=== PATIENT | male | born 1965 | race Caucasian/White ===

== ENCOUNTER → 2021-06-04 13:03 | Outpatient (BNVA) | payer MEDICAID, SELFPAY | PROVIDERS: Visit Provider Orthopaedic Surgery | DX: G56.03 Carpal tunnel syndrome, bilateral upper limbs (principal) | CPT/HCPCS: 99202 ==

== ENCOUNTER 2021-06-12 10:33 | Day surgery (SDC) | payer MEDICAID, SELFPAY ==
[2021-06-12 11:07] VITALS: BP 129/79; PULSE 65; RESP 16; TEMP 36.3; O2SAT 97; BMI 37.5
--- NOTE | 2021-06-12 12:05 | MHC.SHP ---
Pre-Procedural Eval Section A Date of Service: 06/12/21 The patient is an INPATIENT: No Changes since office visit: No Cold of Flu in the past 2 weeks, No New Medical Problems, No Changes in Medication and No Patient answered all questions The History & Physical has been completed within 30 days and I have reviewed it.: Yes Section B Chief Complaint: carpal tunnel Allergies: Allergies Allergy/AdvReac Type Severity Reaction Status Date / Time No Known Allergies Allergy Verified 06/12/21 11:05 Plan I have reviewed the history and physical and performed a pertinent physical examination on my patient. No changes have occurred unless specified.
--- NOTE | 2021-06-12 12:06 | W.PM.OPN ---
Operative Note Operative Note Date of Service: 06/12/21 Narrative: Preop diagnosis: 1. Left Carpal tunnel syndrome Postop diagnosis: same Procedure: 1. Left Carpal tunnel release Surgeon: Sherri Patel MD Anesthesia: local block using 1% lidocaine with epinephrine Findings: Thickened transverse carpal ligament. EBL: Less than 5 mL Specimens: None Complications: None Disposition: Brought to recovery room in stable condition Plan: Follow-up for 7-10 days for wound check and suture removal Indications: The patient is 55 years old, with left carpal tunnel syndrome that has been unresponsive to nonoperative management. The risks and benefits of operative treatment including but not limited to risk of damage to blood vessels, nerves, tendons, infection, persistent pain, persistent symptoms, or possible need for additional surgery were discussed with the patient and the patient wishes to proceed with surgery. Procedure: Once consent was obtained a local block was performed using a combination of 1% lidocaine with epinephrine. The patient was then brought back to the operating suite and placed on the operative table in supine position. A tourniquet was applied to the proximal aspect of the left upper extremity and the limb was prepped and draped in a standard surgical fashion. Once assured that we had a good block, a 1.5 cm longitudinal incision was made centered over the carpal tunnel. The incision was made through the skin to the subcutaneous tissues using a #15 blade. Dissection was made down to the level of the transverse carpal ligament with care being taken to protect the palmar cutaneous nerve. Once the transverse carpal ligament was clearly visualized, a longitudinal incision was made in the transverse carpal ligament 1st using a #15 blade, then using tenotomy scissors under direct visualization. Care was taken to look for and protect the motor branch of the median nerve when seen in this area. Once satisfied with our carpal tunnel release the wound was copiously irrigated with normal saline and hemostasis was obtained with a brief period of local pressure. The skin edges were reapproximated with some 5.0 nylon suture material and a sterile dressing was applied. The patient appears to have tolerated the procedure well and with no complications. All digits were well vascularized at the conclusion of the case.
[2021-06-12 12:43] VITALS: BP 127/78; PULSE 60; RESP 16; TEMP 36.3; O2SAT 97
== END 2021-06-12 13:00 | disposition home or self-care (01) ==
PROVIDERS: Visit Provider Orthopaedic Surgery
PROC: (CPT 64721; principal; 2021-06-12 11:50)
DX: G56.02 Carpal tunnel syndrome, left upper limb (principal)
CPT/HCPCS: 64721

== ENCOUNTER → 2021-06-25 12:03 | Outpatient (BNVA) | payer MEDICAID, SELFPAY | PROVIDERS: Visit Provider Orthopaedic Surgery | DX: Z48.89 Encounter for other specified surgical aftercare (principal); Z87.39 Personal history of other diseases of the musculoskeletal system and connective tissue | CPT/HCPCS: 99212 ==

== ENCOUNTER 2021-07-10 10:39 | Day surgery (SDC) | payer MEDICAID, SELFPAY ==
[2021-07-10 11:42] VITALS: BMI 37.5
[2021-07-10 11:58] VITALS: BP 94/77; PULSE 63; RESP 16; TEMP 36.7; O2SAT 95
--- NOTE | 2021-07-10 13:13 | MHC.SHP ---
Pre-Procedural Eval Section A Date of Service: 07/10/21 The patient is an INPATIENT: No Changes since office visit: No Cold of Flu in the past 2 weeks, No New Medical Problems, No Changes in Medication and No Patient answered all questions The History & Physical has been completed within 30 days and I have reviewed it.: Yes Section B Chief Complaint: carpal tunnel syndrome Allergies: Allergies Allergy/AdvReac Type Severity Reaction Status Date / Time No Known Allergies Allergy Verified 06/25/21 12:36 Plan I have reviewed the history and physical and performed a pertinent physical examination on my patient. No changes have occurred unless specified.
--- NOTE | 2021-07-10 13:14 | W.PM.OPN ---
Operative Note Operative Note Date of Service: 07/10/21 Narrative: Preop diagnosis: 1. Right Carpal tunnel syndrome Postop diagnosis: same Procedure: 1. Right Carpal tunnel release Surgeon: Sherri Patel MD Anesthesia: local block using 1% lidocaine with epinephrine Findings: Thickened transverse carpal ligament. EBL: Less than 5 mL Specimens: None Complications: None Disposition: Brought to recovery room in stable condition Plan: Follow-up for 7-10 days for wound check and suture removal Indications: The patient is 55 years old, with right carpal tunnel syndrome that has been unresponsive to nonoperative management. The risks and benefits of operative treatment including but not limited to risk of damage to blood vessels, nerves, tendons, infection, persistent pain, persistent symptoms, or possible need for additional surgery were discussed with the patient and the patient wishes to proceed with surgery. Procedure: Once consent was obtained a local block was performed using a combination of 1% lidocaine with epinephrine. The patient was then brought back to the operating suite and placed on the operative table in supine position. A tourniquet was applied to the proximal aspect of the right upper extremity and the limb was prepped and draped in a standard surgical fashion. Once assured that we had a good block, a 1.5 cm longitudinal incision was made centered over the carpal tunnel. The incision was made through the skin to the subcutaneous tissues using a #15 blade. Dissection was made down to the level of the transverse carpal ligament with care being taken to protect the palmar cutaneous nerve. Once the transverse carpal ligament was clearly visualized, a longitudinal incision was made in the transverse carpal ligament 1st using a #15 blade, then using tenotomy scissors under direct visualization. Care was taken to look for and protect the motor branch of the median nerve when seen in this area. Once satisfied with our carpal tunnel release the wound was copiously irrigated with normal saline and hemostasis was obtained with a brief period of local pressure. The skin edges were reapproximated with some 5.0 nylon suture material and a sterile dressing was applied. The patient appears to have tolerated the procedure well and with no complications. All digits were well vascularized at the conclusion of the case.
[2021-07-10 14:10] VITALS: BP 144/93; PULSE 60; RESP 18; TEMP 36.7; O2SAT 98
== END 2021-07-10 14:38 | disposition home or self-care (01) ==
PROVIDERS: Visit Provider Orthopaedic Surgery
PROC: (CPT 64721; principal; 2021-07-10 13:10)
DX: G56.01 Carpal tunnel syndrome, right upper limb (principal)
CPT/HCPCS: 64721

== ENCOUNTER → 2021-07-25 12:27 | Outpatient (BNVA) | payer MEDICAID, SELFPAY | PROVIDERS: Visit Provider Orthopaedic Surgery | DX: G56.03 Carpal tunnel syndrome, bilateral upper limbs (principal); I10 Essential (primary) hypertension | CPT/HCPCS: 99212 ==

== ENCOUNTER 2021-08-10 11:55 | Outpatient (REF) | payer MEDICAID, SELFPAY ==
--- NOTE | ~2021-08-10 | XR_ITS ---
EXAMINATION: XR KNEE, LEFT XR KNEE, RIGHT CLINICAL INFORMATION: Bilateral knee pain COMPARISON: None TECHNIQUE: 4 views of each knee. This includes AP upright view. FINDINGS: Left knee: No fracture or subluxation. Compartmental joint spaces are maintained. No joint effusion. The soft tissues are unremarkable. Right knee: No fracture or subluxation. Compartmental joint spaces are maintained. No joint effusion. The soft tissues are unremarkable. XR/XR knee LT 4V IMPRESSION: Normal appearance of both knees.
--- NOTE | ~2021-08-10 | XR_ITS ---
EXAMINATION: XR KNEE, LEFT XR KNEE, RIGHT CLINICAL INFORMATION: Bilateral knee pain COMPARISON: None TECHNIQUE: 4 views of each knee. This includes AP upright view. FINDINGS: Left knee: No fracture or subluxation. Compartmental joint spaces are maintained. No joint effusion. The soft tissues are unremarkable. Right knee: No fracture or subluxation. Compartmental joint spaces are maintained. No joint effusion. The soft tissues are unremarkable. XR/XR knee RT 4V IMPRESSION: Normal appearance of both knees.
== END 2021-08-10 11:56 | disposition home or self-care (01) ==
LOC: HO.XRAY 11:55
PROVIDERS: Absent Provider Student in an Organized Health Care Education/Training Program; PCP Student in an Organized Health Care Education/Training Program; Visit Provider Family Medicine
DX: M25.562 Pain in left knee (principal); M25.561 Pain in right knee
CPT/HCPCS: 73564

== ENCOUNTER 2021-09-17 09:40 | Outpatient (REF) | payer MEDICAID, SELFPAY ==
[2021-09-17 10:42] LABS: COVID-19 Test Negative (Negative)
== END 2021-09-17 09:41 | disposition home or self-care (01) ==
LOC: HO.LAB 09:40
PROVIDERS: Visit Provider Internal Medicine
DX: Z20.822 Contact with and (suspected) exposure to COVID-19 (principal)
CPT/HCPCS: 36415; 87635; C9803

== ENCOUNTER 2023-10-14 13:41 | Outpatient (REF) | payer MEDICAID, SELFPAY ==
[2023-10-14 15:31] LABS: Anion Gap 12 (12-20); Blood Urea Nitrogen 12 mg/dL (9-16); Calcium 10.8 mg/dL (8.4-10.2); Carbon Dioxide 21 mmol/L (22-29); Chloride 109 mmol/L (96-108); Estimated Glomerular Filt Rate > 60; Glucose Random 99 mg/dL (60-115); Potassium 4.1 mmol/L (3.3-5.1); Sodium 138 mmol/L (135-145)
== END 2023-10-14 13:42 | disposition home or self-care (01) ==
LOC: HO.CHCLDS 13:41
PROVIDERS: Visit Provider Internal Medicine
DX: R22.1 Localized swelling, mass and lump, neck (principal)
CPT/HCPCS: 36415; 80048

== ENCOUNTER 2023-10-31 10:31 | Outpatient (REF) | payer MEDICAID, SELFPAY ==
[2023-10-31 15:14] LABS: Alanine Aminotransferase 43 U/L (0-40); Alkaline Phosphatase 86 U/L (39-117); Anion Gap 10 (12-20); Aspartate Amino Transferase 45 U/L (5-37); Bilirubin Direct 0.2 mg/dL (0.0-0.5); Bilirubin Total 0.5 mg/dL (0.0-1.0); Blood Urea Nitrogen 9 mg/dL (9-16); Calcium 11.2 mg/dL (8.4-10.2); Carbon Dioxide 23 mmol/L (22-29); Chloride 108 mmol/L (96-108); Cholesterol 198 mg/dL (<200); Estimated Glomerular Filt Rate > 60; Glucose Random 94 mg/dL (60-115); HDL Cholesterol 32 mg/dL (>40); LDL Cholesterol Calculated 111 mg/dL (<100); Potassium 4.3 mmol/L (3.3-5.1); Sodium 137 mmol/L (135-145); Total Protein 7.2 g/dL (6.5-8.0); Triglycerides 278 mg/dL (<150)
[2023-11-04 15:43] LABS: HIV RNA PCR Qn Copies Not Detected Copies/mL; HIV RNA PCR Qn Log Copies Not Detected Log cps/mL
== END 2023-10-31 10:32 | disposition home or self-care (01) ==
LOC: HO.CHCLDS 10:31
PROVIDERS: Visit Provider Student in an Organized Health Care Education/Training Program
DX: Z00.00 Encounter for general adult medical examination without abnormal findings (principal); I10 Essential (primary) hypertension
CPT/HCPCS: 36415; 80048; 80061; 80076; 86803; 87536; 87900

== ENCOUNTER 2023-11-03 14:45 | Outpatient (AMB) | payer MEDICAID, SELFPAY ==
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
[2023-11-03 15:20] VITALS: BP 145/81; PULSE 63; BMI 40.0
== END 2023-11-03 16:10 | disposition home or self-care (01) ==
PROVIDERS: PCP Student in an Organized Health Care Education/Training Program; Referring Provider Student in an Organized Health Care Education/Training Program; Visit Provider Surgery
DX: R22.1 Localized swelling, mass and lump, neck (principal)
CPT/HCPCS: 99204

== ENCOUNTER → 2023-11-03 14:45 | Outpatient (BNVA) | payer MEDICAID, SELFPAY | PROVIDERS: PCP Student in an Organized Health Care Education/Training Program; Visit Provider Surgery | DX: R22.1 Localized swelling, mass and lump, neck (principal) | CPT/HCPCS: 99202 ==

== ENCOUNTER 2023-11-06 14:50 | Outpatient (REF) | payer MEDICAID, SELFPAY ==
[2023-11-06 16:38] LABS: Partial Thromboplastin Time 36.4 SEC (26.0-36.4)
[2023-11-06 16:45] LABS: Anion Gap 9 (12-20); Blood Urea Nitrogen 14 mg/dL (9-16); Carbon Dioxide 24 mmol/L (22-29); Chloride 109 mmol/L (96-108); Estimated Glomerular Filt Rate > 60; Glucose Random 91 mg/dL (60-115); Potassium 4.5 mmol/L (3.3-5.1); Sodium 137 mmol/L (135-145)
== END 2023-11-06 14:51 | disposition home or self-care (01) ==
LOC: HO.CHCLDS 14:50
PROVIDERS: Visit Provider Student in an Organized Health Care Education/Training Program
DX: E83.52 Hypercalcemia (principal)
CPT/HCPCS: 36415; 80048; 83970; 85730

== ENCOUNTER 2025-06-07 10:19 | Outpatient (REF) | payer MEDICAID, SELFPAY ==
--- OUTSIDE RECORDS SUMMARY | 2025-06-07 11:02 | XMS_ITS | Encounter Summary ---
Author Organization [employer] Address [address] [place] [address] [address] [place] [address] Care Team Providers Care Mold Sheet Cleaner Name Role Phone Michaela Watt MD Primary Care Provider [phone] Encounter Details Date Type Department Care Team (Late st Contact Info) Description 02/03/2024 Orders Only [facility] [address] [place] [address] ProviderMirela MD Social History Tobacco Use Types Packs/Day Years Used Date Smoking Tobacco: Former Cigarettes Passive Smoke Exposure: Current Smokeless Tobacco: Never Alcohol Use Standard Drinks/Week Comments Defer 0 (1 standard drink = 0.6 oz pur e alcohol) Depression Answer Date Recorded Patient Health Questionnaire-9 Score 0 10/01/2023 Patient Health Questionnaire-9 Score 0 10/01/2023 Last PHQ-9: Questionnaire Data Not on file 1 12/02/2022 Housing Stability Answer Date Recorded What is your housing situation today? I have gamalielalexandr browne 08/01/[address] you li ve. Do you have problems with any of the following? None of the above 08/01/2023 Food Insecurity Answer Date Recorded Within the past 12 months, y ou worried that your food would run out before you got money to buy more: Never True 08/01/2023 Within the past 12 months,th e food you bought just didn't last and you didn't have enough money to get more: Never True Transportation Answer Date Recorded In the past 12 months, has l ack of transportation kept you from medical appts, meetings, work or from getting things needed for daily living? No 08/01/2023 Utilities Answer Date Recorded In the past 12 months, has t he electric, gas, oil or water [employer] threatened to shut off services in your home? No 08/01/2023 Depression Answer Date Recorded Patient Health Questionnaire-2 Score 0 10/01/2023 Sex and Gender Information Value Date Recorded Sex Assigned at Male 08/12/2022 10:15 AM EDT Legal Sex Male 10:15 AM EDT Gender Identity Male 08/12/2022 10:15 AM EDT Sexual Orientation Lesbian or Delcid 08/12/2022 10 :15 AM EDT documented as of this encounter Plan of Treatment Upcoming Encounters Date Type Department Care Team (Late st Contact Info) Description 06/23/2025 8:45 AM EDT Office Visit [facility] [address] [place], [place] [phone] Michaela Watt MD [address] [place], [place] [phone] 09/26/2025 11:00 AM EST Office Visit [facility] [address] [place], [place] [phone] Ann Bonilla, OD [address] [place] [address] documented as of this encounter Procedures Procedure Name Priority Date/Time Associated Diagnosis Comments CT NECK AND CHEST WITH INTRAVENOUS CONTRAST Routine 02/02/2024 10:33 AM EDT documented in this encounter Results * CT NECK AND CHEST WITH INTRAVENOUS CONTRAST (02/02/2024 10:33 AM EDT) Anatomical Region Laterality Modality Body, Chest Computed Tomogra phy Historical Provider MD [facility] CT PROCEDURES Final R esult documented in this encounter Visit Diagnoses Not on filedocumented in this encounter Additional Health Concerns Assessment Noted Time PHQ-9 Depression Total Score: 0 10/01/20 23 9:56 AM EST documented as of this encounter Care Teams Mold Sheet Cleaner Relationship Specialty Start Date End Date Michaela Watt MD [address] [place] [address] PCP - General Family Medicine 03/28/16 documented as of this encounter
--- OUTSIDE RECORDS SUMMARY | 2025-06-07 11:02 | XMS_ITS | Encounter Summary ---
Author Organization [employer] Address [address] [place] [address] [address] [place] [address] Care Team Providers Care Quality Assurance Practice Manager Name Role Phone Michaela Watt MD Primary Care Provider [phone] Reason for Visit * Reason Onset Date Comments Referral 11/04/2023 Encounter Details Date Type Department Care Team ([facility] st Contact Info) Description 11/04/2023 Telephone [facility] [address] [place] [address] Michaela Watt MD [address] [place] [address] Referral Social History Tobacco Use Types Packs/Day Years [...] is your housing situation today? I have gamaliel browne 08/01/[address] you [...] t he electric, gas, oil or water company threatened to shut off services in your home? No 08/01/2023 Depression Answer Date Recorded Patient Health Questionnaire-2 Score 0 10/01/2023 Sex and Gender Information Value Date Recorded Sex Assigned at Male 08/12/2022 10:15 AM EDT Legal Sex Male 10:15 AM EDT Gender Identity Male 08/12/2022 10:15 AM EDT Sexual Orientation Lesbian or Delcid 08/12/2022 10 :15 AM EDT documented as of this encounter Miscellaneous Notes * Telephone Encounter - Luisa Duarte RN - 11/11/2023 3:29 PM EST TC placed to patient regarding message below from Dr. Watt. Patient reports he is aware of this result and was already called by Endo. He has an appointment with them on 11/21/23. No other questions or concerns at this time. Routing to PCP so she is aware. ----- Message from Michaela Watt MD sent at 11/11/2023 10:24 AM EST ----- STAT referral done to Endo for elevated Parathyroid hormone * Telephone Encounter - Betty Bowen RN - 11/05/2023 1:27 PM EST Please review note from Gen surgery in pt chart from 11/03/23. Dr Kilgore is recommending a referral to a head and neck surgeon. Please advise. * Telephone Encounter - Meghan Matthew - 11/04/2023 10:28 AM EST Tc from pt calling to inform referral that was sent on 10/31/23 to [facility]. Provider inform pt would need another referral somewhere else . Please call pt to clarify . documented in this encounter Plan of Treatment Upcoming Encounters Date Type Department Care Team (Late st Contact Info) Description 06/23/2025 8:45 AM EDT Office Visit [facility] [address] [place], [place] [phone] Michaela Watt MD [address] [place], [place] [phone] 09/26/2025 11:00 AM EST Office Visit [facility] [address] [place] [address] Ann Bonilla, OD [address] [place] [address] documented as of this encounter Visit Diagnoses Not on filedocumented in this encounter Additional Health Concerns Assessment Noted Time PHQ-9 Depression Total Score: 0 10/01/20 9:56 AM EST documented as of this encounter Care Teams Quality Assurance Practice Manager Relationship Specialty Start Date End Date Michaela Watt MD [address] [place] [address] PCP - General Family Medicine 03/28/16 documented as of this encounter
--- OUTSIDE RECORDS SUMMARY | 2025-06-07 11:02 | XMS_ITS | Encounter Summary ---
Author Organization [employer] Address [address] [place] [address] Care Team Providers Care Clinical Laboratory Director Name Role Phone Michaela Watt MD Primary Care Provider Encounter Details Date Type Department Care Team (Late st Contact Info) Description 10/15/2024 Orders Only [facility] [address] [place] [address] ProviderMirela MD Social History Tobacco Use Types [...] t he electric, gas, oil or water [employer] threatened to shut off services in your [...] Description 06/23/2025 8:45 AM EDT Office Visit [facility] [address] [place], [place] [phone] Michaela Watt MD [address] [place], [place] [phone] 09/26/2025 11:00 AM EST Office Visit [facility] [address] [place], [place] [phone] Chad, Ann, OD [address] [place] [address] documented as of this encounter Procedures Procedure Name Priority Date/Time Associated Diagnosis Comments CT SOFT TISSUE NECK W CONTRAST Routine 1965 1:43 PM EST documented in this encounter Results * CT SOFT TISSUE NECK W CONTRAST (1965 1:43 PM EST) Anatomical Region Laterality Modality Computed Tomogra phy us Historical Provider MD [facility] CT PROCEDURES Final R esult documented in this encounter Visit Diagnoses Not on filedocumented in this encounter Additional Health Concerns Assessment Noted Time PHQ-9 Depression Total Score: 0 10/01/20 23 9:56 AM EST documented as of this encounter Care Teams Clinical Laboratory Director Relationship Specialty Start Date End Date Michaela Watt MD [address] [place] [address] PCP - General Family Medicine 03/28/16 documented as of this encounter
--- OUTSIDE RECORDS SUMMARY | 2025-06-07 11:02 | XMS_ITS | Clinical Summary ---
Author Organization [facility] Address [address] [place] [address] Care Team Providers Care Scientific Diver Name Role Phone Michaela Watt Primary Care Provider Allergies No known active allergies Medications zolpidem (AMBIEN) 5 mg tablet TOME LUIS TABLETA TODOS LOS D AL ACOSTARSE 4 Active magnesium oxide 400 mg magnesium capsule SMARTSI Capsule(s) By Mouth Every Morning 3 Active ARIPiprazole (ABILIFY) 10 mg tablet TOME LUIS TABLETA TODOS LOS D AL ACOSTARSE 4 Active hydrOXYzine (VISTARIL) 25 mg capsule SMARTSI Capsule(s) By Mouth 3 Times Daily PRN 4 Active lisinopriL (PRINIVIL,ZESTR IL) 20 mg tablet TOME LUIS TABLETA TODOS LOS D EN LA MA JOSÉ MIGUEL Active FLUoxetine (PROzac) 10 mg capsule SMARTSI Tablet(s) By Mouth Daily Active simvastatin (ZOCOR) 10 mg tablet TOME LUIS TABLETA TODOS LOS D EN LA NOCHE 3 Active riboflavin, vitamin B2, 400 mg tablet SMARTSI Tablet(s) By Mouth Every Morning 3 Active busPIRone (BUSPAR) 15 mg tablet Take 7.5 mg by mouth 2 times a day. Active ibuprofen (MOTRIN) 200 mg tablet Take 65 mg by mouth every 6 hours as needed for pain. Active Social History Tobacco Use Types Packs/Day Years Used Date Smoking Tobacco: Former Cigarettes Smokeless Tobacco: Never Alcohol Use Standard Drinks/Week Comments Not Currently 0 (1 standard drink = 0.6 oz pur e alcohol) Sex and Gender Information Value Date Recorded Sex Assigned at Male 11/24/2023 1:48 PM EST Legal Sex Male 1:45 PM EST Gender Identity Not on file Sexual Orientation Not on file Last Filed Vital Signs Vital Sign Reading Time Taken Comments Blood Pressure 131/80 12/31/2023 1:06 PM EDT Pulse 69 12/31/2023 1:06 PM EDT Temperature - - Respiratory Rate - - Oxygen Saturation - - Inhaled Oxygen Concentration - - Weight 101.2 kg (223 lb) 12/31/2023 1:06 PM EDT Height - - Body Mass Index - - Plan of Treatment Health Maintenance Due Date Last Done Comments Cologuard 1965 Colon Cancer Screening 1965 Colonoscopy 1965 FOBT / Fit Test 1965 Hepatitis C Screening 1965 Sigmoidoscopy 1965 Hepatitis B Vaccines (1 of 3 - 19+ 3-dose series) 1984 CT Lung Cancer Screening (Baseline) 2015 Pneumococcal Vaccine: 50+ Ye ars (1 of 1 - PCV) 2015 Zoster Vaccines (1 of 2) 2015 COVID-19 Vaccine (2 - season) 06/13/202410/2020 Alcohol/Substance Use Screening 10/13/2024 Depression Screening and Follow-Up 10/13/2024 Social Drivers of Health Sara ual Screening 10/13/2024 Influenza Vaccine (#1) 2025 , 07/25/2016, 06/25/2011 DTaP,Tdap,and Td Vaccines (3 - Td or Tdap) 10/01/2033 10/01/2023, 12/28/2012, 06/26/2007 RSV Vaccine (60+ years old a nd patients) (1 - 1-dose 75+ series) 2040 HIV Screening Completed 10/31/2023 Insurance [facility] [place] [id number] Care Teams Scientific Diver Relationship Specialty Start Date End Date Michaela Watt [address] [place] [phone] PCP - General Family Medicine 11/24/23
--- OUTSIDE RECORDS SUMMARY | 2025-06-07 11:02 | XMS_ITS | Encounter Summary ---
Author Organization [facility] Address [address] [place] [address] Care Team Providers Care Industrial Production Manager Name Role Phone Michaela Watt Primary Care Provider [phone] Reason for Visit * Reason Onset Date Comments Actionable Finding 04/22/2024 Encounter Details Date Type Department Care Team (Late st Contact Info) Description 04/22/2024 Telephone [facility] - Actionable Findings [address] [facility] [address] [place], [place] [phone] Trent Tyler RN Actionable Finding Social History Tobacco Use Types Packs/Day Years [...] on file Sexual Orientation Not on file documented as of this encounter Miscellaneous Notes * Telephone Encounter - Trent Tyler RN - 04/22/2024 3:05 PM EDT The Actionable Findings Team performed a chart review of radiology studies below. There may not have been a telephone call or patient contact with this encounter. Actionable finding review of CT Date of scan: 01/28/24 Location of scan: [facility] Status of incidental finding: Provider aware (acknowledged) Trent Abreu RN at [phone] documented in this encounter Plan of Treatment Not on file documented as of this encounter Visit Diagnoses Not on filedocumented in this encounter Care Teams Industrial Production Manager Relationship Specialty Start Date End Date Michaela Watt [address] [place] [id number] PCP - General Family Medicine 11/24/23 documented as of this encounter
--- OUTSIDE RECORDS SUMMARY | 2025-06-07 11:02 | XMS_ITS | Encounter Summary ---
Author Organization [employer] Address [address] [place] [address] [address] [place] [address] Care Team Providers Care Incoming Freight Clerk Name Role Phone Michaela Watt MD Primary Care Provider [phone] Reason for Visit * Reason Onset Date Comments Medication Question 10/08/2022 Encounter Details Date Type Department Care Team (Late Contact Info) Description 10/08/2022 Telephone [facility] [address] [place] [address] Michaela Watt MD [address] [place] [address] Medication Question Social History Tobacco Use Types Packs/Day Years Used Date Smoking Tobacco: Never Assessed Sex and Gender Information Value Date Recorded Sex Assigned at Male 08/12/2022 10:15 AM EDT Legal Sex Male 10:15 AM EDT Gender Identity Male 08/12/2022 10:15 AM EDT Sexual Orientation Lesbian or Delcid 08/12/2022 10 :15 AM EDT documented as of this encounter Miscellaneous Notes * Telephone Encounter - Meghan Matthew - 10/08/2022 11:50 AM EST Tc from pt requesting status on medication lisinopril 20 mg . States is out of meds . documented in this encounter Plan of Treatment Upcoming Encounters Date Type Department Care Team (Late Contact Info) Description 06/23/2025 8:45 AM EDT Office Visit [facility] [address] [place] [address] Michaela Watt MD [address] [place] [address] 09/26/2025 11:00 AM EST Office Visit [facility] OPTOMETRY [address] [place], [place] [phone] Ann Bonilla, OD [address] [place] [address] documented as of this encounter Visit Diagnoses Not on filedocumented in this encounter Care Teams Incoming Freight Clerk Relationship Specialty Start Date End Date Michaela Watt MD [address] [place] [address] PCP - General Family Medicine 03/28/16 documented as of this encounter
--- OUTSIDE RECORDS SUMMARY | 2025-06-07 11:02 | XMS_ITS | Encounter Summary ---
Author Organization [facility] Address [address] [place] [address] Care Team Providers Care Fisher Scallop Name Role Phone Michaela Watt Primary Care Provider [phone] Encounter Details Date Type Department Care Team (Late st Contact Info) Description 12/31/2023 Orders Only [facility] Interventional Radiology [address] [place], [place] [phone] Woody Peterson MD [address] [place], [place] [phone] Social History Tobacco Use Types Packs/Day Years [...] on file documented as of this encounter Plan of Treatment Not on file documented as of this encounter Visit Diagnoses Not on filedocumented in this encounter Care Teams Fisher Scallop Relationship Specialty Start Date End Date Michaela Watt [address] [place] [address] PCP - General Family Medicine 11/24/23 documented as of this encounter
--- OUTSIDE RECORDS SUMMARY | 2025-06-07 11:02 | XMS_ITS | Clinical Summary ---
Author Organization [employer] Address [address] [place] [address] [address] [place] [address] Care Team Providers Care Bit Shaver Name Role Phone Michaela Watt MD Primary Care Provider [phone] Allergies No known active allergies Medications busPIRone (Buspar) 5 MG tablet TOME LUIS TABLETA DOS VECES AL D A 05/21/20 22 Active zolpidem (Ambien) 5 MG tablet TOME LUIS TABLETA TODOS LOS D AL ACOSTARSE 11/15/19 23 Active Magnesium 400 MG capsuleIndicatio ns:Intractable migraine with aura with status migrainosus Take 1 capsule by mouth in the morning. 90 capsule 11 10/01/20 23 Active simvastatin (Zocor) 10 MG tabletIndication s:Primary hypertension TOME LUIS TABLETA TODOS LOS D EN LA NOCHE 90 tablet 3 10/01/20 23 Active ALPRAZolam XR (Xanax XR) 1 MG 24 hr tablet Take 1 tab po 1/2 hr before MRI 2 tablet 10/23/19 24 Active triamcinolone (Kenalog) 0.1 % cream Apply topically if needed in the morning and at bedtime (pain and swelling). 30 g 2 03/17/20 24 Active diphenhydrAMINE (BENADryl) 25 MG tablet Take 1 tablet (25 mg) by mouth every 6 (six) hours if needed for itching. 30 tablet 03/23/20 24 Active Heartburn Relief 10 MG tabletIndication s:Gastroesophage al reflux disease without esophagitis TAKE 2 TABLETS BY MOUTH 2 TIMES DAILY. 360 tablet 3 04/06/20 24 Active riboflavin (Vitamin B-2) 400 MG tabletIndication s:Intractable migraine with aura with status migrainosus TAKE 1 TABLET BY MOUTH EVERY MORNING 90 tablet 11 04/23/20 24 Active lisinopril 20 MG tabletIndication s:Primary hypertension TAKE 1 TABLET BY MOUTH EVERY MORNING 90 tablet 3 10/26/19 25 Active FLUoxetine (PROzac) 10 MG capsuleIndicatio ns:Depressive disorder TAKE 1 CAPSULE BY MOUTH EVERY DAY 90 capsule 3 10/26/19 25 Active gemfibrozil (Lopid) 600 MG tabletIndication s:Primary hypertension Take 1 tablet (600 mg) by mouth every 12 (twelve) hours. 180 tablet 3 12/16/19 25 026 Active butalbital-aceta minophen-caffein e 50-325-40 MG tabletIndication s:Intractable migraine with aura with status migrainosus Take 1 tablet by mouth every 4 (four) hours. 4 tablet 12/16/19 25 Active calcitriol (Rocaltrol) 0.25 MCG capsuleIndicatio ns:Hyperparathyr oidism (CMS/HCC) Take 1 capsule (0.25 mcg) by mouth Once per day. 90 capsule 3 12/16/19 25 026 Active cyclobenzaprine (Flexeril) 5 MG tablet Take 1-2 tablets by mouth every 8 hours as needed for moderate-brennon re neck and low back pain. May cause drowsiness. 42 tablet 12/16/19 25 Active meloxicam (Mobic) 7.5 MG tablet Take 1 tablet (7.5 mg) by mouth Once per day. 30 tablet 05/06/20 25 026 Active hydrOXYzine HCl (Atarax) 25 MG tablet TAKE 1 TABLET BY MOUTH AT BEDTIME NEEDED FOR ANXIETY 30 tablet 05/10/20 25 Active hydrOXYzine HCl (Atarax) 25 MG tablet Take 1 tablet (25 mg) by mouth if needed at bedtime for anxiety. 30 tablet 3 12/16/19 25 025 Discontinued Active Problems Problem Noted Date Diagnosed Date Anxiety 05/06/2025 Parathyroid adenoma 12/15/2024 Intractable migraine with aura with status migra inosus 03/25/2023 Assessment & Plan (03/25/2023 1:37 PM EDT): Gave Fioricet (4 pills) to help break migraine. Also starting patient on magnesium 400 mg PO every day and riboflavin 400 mg PO every day as a prophylactic treatment. He has a f/up in one month. Primary insomnia 12/30/2022 Benign hypertension 04/09/2016 Depressive disorder 04/09/2016 Gastroesophageal reflux disease without esophagi tis 04/09/2016 Assessment & Plan (03/25/2023 1:31 PM EDT): He reports his GERD is back. I offered famotidine and he accepted. Patient will f/up in one month. Encounters Date Type Department Care Team Description 05/09/2025 Telephone [facility] OPTOMETRY [address] [place], [place] [phone] Ann Bonilla, RYAN 05/07/2025 Refill [facility] [address] [place] [address] Michaela Watt MD 05/06/2025 11:30 AM EDT Office Visit [facility] [address] [place] [address] Michaela Watt MD Benign hypertension (Primary Dx); Parathyroid adenoma; Encounter for screening for malignant neoplasm of colon; Anxiety 05/06/2025 Travel 03/07/2025 Refill [facility] [address] [place] [address] Michaela Watt MD from Last 3 Months Immunizations Immunization Administration Dates Next Due Influenza injectable quadriv alent IIV4 with preservative 07/25/2016 Influenza injectable quadrivalent preservative f ree 08/03/2021 Influenza, IIV3, injectable 06/25/2011 TD (adult), 2 Lf tetanus tox oid, preservative free, adsorbed 06/26/2007 Tdap 10/01/2023,12/28/2012 Social History Tobacco Use Types Packs/Day Years Used Date Smoking Tobacco: Former Cigarettes Passive Smoke Exposure: Current Smokeless Tobacco: Never Tobacco Cessation:Counseling Given: Not Answered Alcohol Use Standard Drinks/Week Comments Defer 0 (1 standard drink = 0.6 oz pur e alcohol) Depression Answer Date Recorded Patient Health Questionnaire-9 Score 5 05/06/2025 Patient Health Questionnaire-9 Score 5 05/06/2025 Last PHQ-9: Questionnaire Data Not on file 0 05/06/2025 Housing Stability Answer Date Recorded What is your housing situation today? I have gamaliel browne 05/06/[address] you li ve. Do you have problems with any of the following? None of the above 05/06/2025 Food Insecurity Answer Date Recorded Within the past 12 months, y ou worried that your food would run out before you got money to buy more: Never True 05/06/2025 Within the past 12 months,th e food you bought just didn't last and you didn't have enough money to get more: Never True Transportation Answer Date Recorded In the past 12 months, has l ack of transportation kept you from medical appts, meetings, work or from getting things needed for daily living? No 05/06/2025 Utilities Answer Date Recorded In the past 12 months, has t he electric, gas, oil or water company threatened to shut off services in your home? No 05/06/2025 Depression Answer Date Recorded Patient Health Questionnaire-2 Score 2 05/06/2025 Internet Access Answer Date Recorded Internet Access Q1 No 05/06/2025 Internet Access Q2 I do not want or need it 04/13 Sex and Gender Information Value Date Recorded Sex Assigned at Male 08/12/2022 10:15 AM EDT Legal Sex Male 10:15 AM EDT Gender Identity Male 08/12/2022 10:15 AM EDT Sexual Orientation Lesbian or Delcid 08/12/2022 10 :15 AM EDT Last Filed Vital Signs Vital Sign Reading Time Taken Comments Blood Pressure 116/74 05/06/2025 11:35 AM EDT Pulse 68 05/06/2025 11:35 AM EDT Temperature 36.5 C (97.7 F) 05/06/2025 11:35 AM EDT Respiratory Rate 20 05/06/2025 11:35 AM EDT Oxygen Saturation 98% 05/06/2025 11:35 AM EDT Inhaled Oxygen Concentration - - Weight 102 kg (224 lb) 05/06/2025 11:35 AM EDT Height 160 cm (5' 3 ) 05/06/2025 11:35 AM EDT Body Mass Index 39.68 05/06/2025 11:35 AM EDT Plan of Treatment Upcoming Encounters Date Type Department Care Team (Late st Contact Info) Description 06/23/2025 8:45 AM EDT Office Visit [facility] [address] [place] [address] Michaela Watt MD [address] [place] [address] 09/26/2025 11:00 AM EST Office Visit [facility] OPTOMETRY [address] [place] [address] Chad, Ann, OD [address] [place] [address] Health Maintenance Due Date Last Done Comments CT Colonography 1965 FIT DNA/Cologuard 1965 FIT 1965 FOBT 1965 HIV Screening 1965 Sigmoidoscopy 1965 Disability Screening 1965 Hepatitis C Screening 1983 Hepatitis B Vaccines (1 of 3 - 19+ 3-dose series) 1984 Pneumococcal Vaccine: 50+ Years (1 of 1 - PCV) 2015 Zoster Vaccines (1 of 2) 2015 Colonoscopy 11/21/2024 11/21/2014 Colorectal Cancer Screening 11/21/2024 Influenza Vaccine (#1) 2025 , 07/25/2016, 06/25/2011 COVID-19 Vaccine ( season) 2025 04/12/2021 Postponed from 06/13/2024 (Patient Refused) Tobacco Screening 12/15/2025 12/15/2024 Alcohol/Substance Use Screening 05/06/2026 05/06/2025 Depression Screening 05/06/2026 05/06/2025, 05/06/20 SDOH Screening 05/06/2026 05/06/2025 Lipid Panel 10/31/2028 10/31/2023, 12/12, 04/09/2022, Additional history exists DTaP/Tdap/Td Vaccines (3 - Td or Tdap) 10/01/2033 10/01/2023, 12/28/2012, 06/26/2007 RSV Patients and Patients Aged 60 years or older (1 - 1-dose 75+ series) 2040 HIB Vaccines Aged Out No longer eligi ble based on patient's age to complete this topic HPV Vaccines Aged Out No longer eligi ble based on patient's age to complete this topic Hepatitis A Vaccines Aged Out No long er eligible based on patient's age to complete this topic IPV Vaccines Aged Out No longer eligi ble based on patient's age to complete this topic Meningococcal B Vaccine Aged Out No l onger eligible based on patient's age to complete this topic Meningococcal Vaccine Aged Out No eugene shireen eligible based on patient's age to complete this topic RSV under 20 months Aged Out No longe r eligible based on patient's age to complete this topic Rotavirus Vaccines Aged Out No longer eligible based on patient's age to complete this topic Procedures Procedure Name Priority Date/Time Associated Diagnosis Comments LIPID PANEL, STANDARD Routine 10/31/2023 10:33 AM EST Primary hypertension HM COLONOSCOPY Routine 11/21/2014 from Last 3 Months or Most Recently Relevant to Health Maintenance Results * (ABNORMAL) Lipid Panel, Standard (10/31/2023 10:33 AM EST) Triglycerides 278(H) <150 mg/dL [facility] Comment:Desirable Triglyceri de: less than 150 mg/dLBorderline High Triglyceride 150-199 mg/dLHigh Triglyceride: 200-499 mg/dLVery High Triglyceride: greater than or equal to 5OO mg/dL Cholesterol 198 <200 mg/dL [facility] Comment:Desirable Cholestero l: less than 200 mg/dLBorderline High Cholesterol: 200-239 mg/dLHigh Cholesterol: greater than 239 mg/dL LDL Cholesterol Calculated 111(H) <100 mg/dL [facility] Comment:Desirable LDL: less than 100 mg/dLNear Optimal/Above Optimal LDL: 110- 129 mg/dLBorderline High LDL: 130-159 mg/dLHigh LDL: 160-189 mg/dLVery High LDL: greater than or equal to 190 mg/dL HDL Cholesterol 32(L) >40 mg/dL [facility] Comment:Desirable HDL: grea ter than 40 mg/dL Note: This HDL assay may give artificially low results in patients with liver disease. Blood Venous blood specimen / Unknown 10/31/2023 10:33 AM EST 10/31/2023 2:45 PM EST Michaela Watt MD LAB BLOOD ORDERABLES Final Resul t [facility] [address] [place] [address] [phone] * Colonoscopy (11/21/2014) Colonoscopy Normal Normal us Historical Provider HEALTH MAINTENANCE Final Result from Last 3 Months or Most Recently Relevant to Health Maintenance Insurance [employer] * Guarantor: Blade Urrutia Account Type Relation to Patient Date of Phone Billing Address Personal/Family Self [place], [place] * Guarantor: Blade Urrutia Account Type Relation to Patient Date of Phone Billing Address Personal/Family Self [place], [place] Care Teams Bit Shaver Relationship Specialty Start Date End Date Michaela Watt MD [address] [place] [id number] PCP - General Family Medicine 03/28/16
--- OUTSIDE RECORDS SUMMARY | 2025-06-07 11:02 | XMS_ITS | Encounter Summary ---
Author Organization [employer] Address [address] [place] [address] [address] [place] [address] Care Team Providers Care Aircraft Shipping Checker Name Role Phone Michaela Watt MD Primary Care Provider [phone] Encounter Details Date Type Department Care Team (Late st Contact Info) Description 10/08/2022 Telephone [facility] [address] [place] [address] Michaela Watt MD [address] [place], [place] [phone] Social History Tobacco Use Types Packs/Day Years [...] Telephone Encounter - Meghan Matthew - 10/08/2022 11:48 AM EST Tc from pt requesting status on medication lisinopril 20 mg . States is out of meds . documented in this encounter Plan of Treatment Upcoming Encounters Date Type Department Care Team (Late st Contact Info) Description 06/23/2025 8:45 AM EDT Office Visit [facility] [address] [place], [place] [phone] Michaela Watt MD [address] [place], [place] [phone] 09/26/2025 11:00 AM EST Office Visit [facility] OPTOMETRY [address] [place], [place] [phone] Ann Bonilla, OD [address] [place] [address] documented as of this encounter Visit Diagnoses Not on filedocumented in this encounter Care Teams Aircraft Shipping Checker Relationship Specialty Start Date End Date Michaela Watt MD [address] [place] [address] PCP - General Family Medicine 03/28/16 documented as of this encounter
[2025-06-07 14:42] LABS: Alanine Aminotransferase 27 U/L (0-40); Albumin Level 4.1 g/dL (3.5-5.0); Alkaline Phosphatase 64 U/L (39-117); Anion Gap 13 (12-20); Aspartate Amino Transferase 41 U/L (5-37); Blood Urea Nitrogen 10 mg/dL (9-16); Calcium 9.2 mg/dL (8.4-10.2); Carbon Dioxide 23 mmol/L (22-29); Chloride 108 mmol/L (96-108); Cholesterol 182 mg/dL (<200); Estimated Glomerular Filt Rate > 60; HDL Cholesterol 30 mg/dL (>40); Potassium 3.7 mmol/L (3.3-5.1); Sodium 140 mmol/L (135-145); Total Protein 6.9 g/dL (6.5-8.0); Triglycerides 235 mg/dL (<150)
== END 2025-06-07 10:20 | disposition home or self-care (01) ==
LOC: HO.CHCLDS 10:19
PROVIDERS: Visit Provider Student in an Organized Health Care Education/Training Program
DX: I10 Essential (primary) hypertension (principal)
CPT/HCPCS: 36415; 80048; 80061; 80076